=== PATIENT | female | born 1995 | race Caucasian/White ===

== ENCOUNTER 2020-12-25 08:13 | Observation (INO) | payer OTHER ==
[2020-12-25 08:27] VITALS: BMI 28.3
[2020-12-25] MEDS ORDERED: ACETAMINOPHEN 500 MG TABLET (FP) PO ONE (08:54)
[2020-12-25] MEDS ORDERED: ACETAMINOPHEN 325 MG TABLET (FP) ONE (09:26)
[2020-12-25 09:32] LABS: BASO % 0.6 % (0-2.0); EOS % 2.2 % (0-4.5); HEMATOCRIT 38.5 % (32.4-45.2); HEMOGLOBIN 13.3 GM/dL (10.7-15.3); LYMPH % 18.8 % (8-40); MCH 30.8 pg (25.7-33.7); MCHC 34.6 g/dl (32.0-36.0); MEAN PLT VOLUME 9.3 fl (7.5-11.1); NEUT % 71.4 % (42.8-82.8); PLATELET COUNT 299 10^3/uL (134-434); RBC 4.32 M/mm3 (3.60-5.2); RDW 12.8 % (11.6-15.6); WHITE BLOOD COUNT 5.6 K/mm3 (4.0-10.0)
[2020-12-25 09:59] LABS: CALCIUM 8.6 mg/dL (8.5-10.1)
[2020-12-25 10:00] LABS: ALBUMIN 3.5 g/dl (3.4-5.0); BLOOD UREA NITROGEN 13.6 mg/dL (7-18)
[2020-12-25 10:03] LABS: CREATININE 0.7 mg/dL (0.55-1.3)
[2020-12-25 10:04] LABS: BILIRUBIN,TOTAL 0.5 mg/dL (0.2-1)
[2020-12-25 10:05] LABS: TOT PROT 6.5 g/dl (6.4-8.2)
[2020-12-25] MEDS ORDERED: LORazepam 2 MG/ML SDV VIAL ONE (11:58)
[2020-12-25] MEDS ORDERED: levETIRAcetam 500 MG/5 ML INJECTION VIAL IVPB ONE ×2 (12:19→12:28)
[2020-12-25 14:22] VITALS: BP 98/62; PULSE 82; TEMP 97.8
[2020-12-25] MEDS ORDERED: LORazepam 2 MG/ML SDV VIAL IVPUSH PRN (15:42)
[2020-12-25] MEDS ORDERED: PATIENT'S OWN MEDICATION (NON-FORMULARY) (Oxcarbazepine [Oxtellar Xr] 600 MG Tab.Er.24h) PO SCH (22:00)
[2020-12-25] MEDS ORDERED: ZONISAMIDE 100 MG CAPSULE PO SCH (22:00)
[2020-12-25] MEDS ORDERED: lamoTRIgine 100 MG TABLET PO SCH (22:00)
== END 2020-12-25 20:00 | disposition left against medical advice (07) ==
LOC: JER 08:13 → INTOOBSV 12:15 → JERBED 12:15
PROVIDERS: ADMIT Internal Medicine; ATTEND Internal Medicine
PROC: 3E033GC Introduction of Other Therapeutic Substance into Peripheral Vein, Percutaneous Approach (ICD-10-PCS; principal; 2020-12-25)
DX: R56.9 Unspecified convulsions (principal); S00.83XA Contusion of other part of head, initial encounter; Z91.14 Patient's other noncompliance with medication regimen; W18.39XA Other fall on same level, initial encounter; Y93.79 Activity, other specified sports and athletics; Y92.89 Other specified places as the place of occurrence of the external cause; F17.210 Nicotine dependence, cigarettes, uncomplicated
CPT/HCPCS: 36415; 70450-TC; 72125-TC; 80053; 80175; 80183; 80203; 84703; 85025; 93005; 93010; 96374; 99285-25; C9803; G0378; U0003; U0005